=== PATIENT | female | born 1960 | race American Indian/Alaskan Native ===

== ENCOUNTER 2018-11-03 10:08 | Outpatient (CLI) | payer BC ==
--- NOTE | 2018-11-03 11:29 | Magnetic Resonance Report ---
MRI LEFT SHOULDER WITHOUT CONTRAST INDICATION: LEFT SHOULDER/ARM PAIN. COMPARISON: None available. TECHNIQUE: Multisequence, multiplanar images were obtained. FINDINGS: SUPRASPINATUS: There is a complete tear of the supraspinatus tendon with tendon or traction to the le marybeth of the mid humeral head about 3 cm from the greater tuberosity and mild atrophy of the supraspino us muscle belly. INFRASPINATUS: Low tendinosis without discrete tear. SUBSCAPULARIS: Moderate tendinosis without discrete tear. BICEPS TENDON, LONG HEAD: No significant abnormality. GLENOID LABRUM: No significant abnormality. ARTICULAR CARTILAGE: No significant abnormality. JOINT SPACE AND CAPSULE: No significant abnormality. ACROMIOCLAVICULAR JOINT: No significant abnormality. SUBACROMIAL/SUBDELTOID SPACE: No significant abnormality. BONES: No bone marrow edema. No fracture. No osseous lesion. SOFT TISSUES: No acute findings. ADDITIONAL FINDINGS: None. IMPRESSION: 1. Complete tear of the supraspinatus tendon with tendon retraction to the level of the mid humeral h ead and mild atrophy of the supraspinatus muscle belly. 2. [id number] infraspinatus and supraspinatus tendinosis without additional discrete rotator cu ff tear. Signer Name: August Chen MD Signed: 11/03/2018 11:25 AM Workstation Name: [id number]
== END 2018-11-03 10:09 | disposition home or self-care (01) ==
LOC: MRI 10:08
PROVIDERS: ATTEND Orthopaedic Surgery
DX: M75.122 Complete rotator cuff tear or rupture of left shoulder, not specified as traumatic (principal)

== ENCOUNTER 2019-03-15 08:19 | Day surgery (SDC) | payer BC ==
[~2019-03-15 08:19] MED LIST: ACETAMINOPHEN 500 MG TAB PO NR; GABAPENTIN 300 MG CAP PO NR; LACTATED RINGERS 1,000 ML IV SCH; MIDAZOLAM 2 MG/2 ML INJ IV NR; ceFAZolin/STERILE WATER 2 GM/20 ML SYRINGE IV NR; fentaNYL 100 MCG/2 ML INJ IV PRN
[2019-03-15] MEDS ORDERED: methylPREDNISolone ACETATE 40 MG/1 ML INJ ONE (09:11)
[2019-03-15] MEDS ORDERED: EPINEPHrine/PF (1:1,000) 1 MG/1 ML INJ ONE (09:12)
[2019-03-15] MEDS ORDERED: BUPIVACAINE-EPINEPHRINE/PF 0.25%-1:200,000 (30 ML) VIAL INFILTRATI ONE (09:12)
--- NOTE | 2019-03-15 09:26 | Anesthesia Consultation ---
Anesthesia Consult and Med Hx Date of service: 03/15/19 - Airway Anesthetic Teeth Evaluation: Poor ROM Head & Neck: Adequate Mental/Hyoid Distance: Adequate Mallampati Class: Class II Intubation Access Assessment: Good - Pulmonary Exam CTA: Yes - Cardiac Exam Cardiac Exam: RRR - Pre-Operative Health Status ASA Pre-Surgery Classification: ASA3 Proposed Anesthetic Plan: General - Pulmonary Hx Smoking: Yes (03/29 1 PPD X 30 YRS) Hx Asthma: Yes (DAILY INHALER) Hx Pneumonia: Yes (06/2018- RESOLVED) Hx Sleep Apnea: No (MARY PRE SCREEN HIGH RISK.) - Cardiovascular System Hx Hypertension: No - Hematic Hx Anemia: Yes (NOT RECENT) - Other Systems Hx Alcohol Use: Yes (1-2 DRINKS EVERY OTHER DAY) Hx Cancer: No - Additional Comments Anesthesia Medical History Comments: daily pack a day smoker , suspect COPD use inhaler daily , diet controlled DM
[2019-03-15] MEDS ORDERED: HYDROmorphone 1 MG/1 ML INJ IV PRN (09:27)
[2019-03-15] MEDS ORDERED: ONDANSETRON 4 MG/2 ML INJ IV PRN (09:27)
--- NOTE | 2019-03-15 09:27 | Anesthesia Day of Surgery ---
Anesthesia Day of Surgery - Day of Surgery Patient Examined: Yes Patient H&P Reviewed: Yes Patient is NPO: Yes
[2019-03-15] MEDS ORDERED: BUPIVACAINE-EPINEPHRINE/PF 0.5%-1:200,000 (30 ML) VIAL INFILTRATI ONE (09:32)
[2019-03-15] MEDS ORDERED: HYDROmorphone 1 MG/1 ML INJ ONE (11:28)
[2019-03-15] MEDS ORDERED: PROPOFOL 200 MG/20 ML VIAL IV ONE (11:28)
[2019-03-15] MEDS ORDERED: PHENYLEPHRINE/NS 1,000 MCG/10 ML SYRINGE (OR USE) IV ONE (12:12)
[2019-03-15] MEDS ORDERED: LIDOCAINE MPF (2%) 20 MG/1 ML VIAL 5 ML ONE (12:13)
[2019-03-15] MEDS ORDERED: SODIUM CHLORIDE P/F VIAL 10 ML 10 ML ONE (12:22)
[2019-03-15] MEDS ORDERED: LACTATED RINGERS 1,000 ML ONE (13:17)
[2019-03-15] MEDS ORDERED: SODIUM CHLORIDE 0.9% IRRIG SOLN 2000 ML IR ONE (13:51)
[2019-03-15] MEDS ORDERED: ONDANSETRON 4 MG/2 ML INJ ONE (13:56)
--- NOTE | 2019-03-15 14:00 | Procedure Note ---
Date of procedure: 03/15/19 Pre-op diagnosis: rotator cuff tear left shoulder Post-op diagnosis: same Procedure: Arthroscopy left shoulder with subacromial decompression and repair rotator cuff tendon using suture anchors Procedure The patient was brought to the OR after being given a scalene nerve block for postop pain management . She was placed in the OR table in supine position following induction and intubation by anesthesia patient was placed in the right lateral decubitus position the left upper extremity was prepped and draped in the usual sterile manner. A timeout procedure was done to identify the patient and the correct operative site. Routine arthroscopic portals were made following introduction of the arthroscope and instruments and insufflation of the subacromial space with normal saline solution patient was noted to have a full-thickness rotator cuff tear which extended from the supraspinatus anteriorly towards the infraspinatus posteriorly in addition she was also noted to have abundant synovial bursal thickening as well as significant impingement from the acromion and acromioclavicular joints. Using a tissue ablator the soft tissue was removed from both the bursal tissues as well as the periosteal tissues overlying the distal acromion and acromioclavicular joints A large bur was used to debride the bony impingement again this was done under arthroscopic visualization. The anatomic footprint was then seen and debrided using the ti ssue ablator the rotator cuff tendon was grasped using a tissue grasper and appeared to move quite mobile and to anterior cruciate ligament footprint.Next 2 suture anchor sutures were placed into these supraspinatus tendon anteriorly as well as the infraspinatus tendon posteriorly the suture anchors were secured into the greater tuberosity followed by tightening of the sutures and pulling the rotator cuff tendon firmly onto the anatomic footprint arthroscopic photographs were obtained showing good placement of the rotator cuff repair following this the wound was copiously irrigated via stab wounds were repaired with 2 postop dressings were applied the patient was extubated and was taken to postanesthesia recovery in stable condition. Patient will also receive a scalene nerve block for postop pain management Anesthesia: MAC, regional Surgeon: MALENA BEEBE [employer] Operator: ALOK QUINTEROS Estimated blood loss: minimal Pathology: none Condition: stable Disposition: PACU
[2019-03-15 16:20] VITALS: BP 146/75
--- NOTE | 2019-03-15 17:32 | Post Anesthesia Evaluation ---
- Post Anesthesia Evaluation Patient Participated: Yes Airway Patent: Yes Stable Respiratory Function: Yes Nausea/Vomiting: No Temp > 96.8F: Yes Pain Manageable: Yes Adequeate Hydration: Yes Anesthesia Complications: No Block Receding Appropriately: Not Applicable Patient on Ventilator: No
== END 2019-03-15 16:00 | disposition home or self-care (01) ==
LOC: OR 08:19
PROVIDERS: ATTEND Orthopaedic Surgery
DX: M75.102 Unspecified rotator cuff tear or rupture of left shoulder, not specified as traumatic (principal); J45.909 Unspecified asthma, uncomplicated; Z72.89 Other problems related to lifestyle; Z79.899 Other long term (current) drug therapy; Z98.890 Other specified postprocedural states; Z86.2 Personal history of diseases of the blood and blood-forming organs and certain disorders involving the immune mechanism
CPT/HCPCS: 29826; 29827; 64415; 82962; A4217; C1713; J0171; J0690; J1170; J2250; J2370; J2405; J2704; J3010; J7120; V2790; J1030

== ENCOUNTER 2019-06-22 11:37 | Emergency (ER) | payer BC ==
[2019-06-22 11:48] VITALS: BP 167/80
--- NOTE | 2019-06-22 11:49 | Emergency Department Report ---
Chief Complaint: Allergic Reaction Stated Complaint: ALLERGIES - HPI History of Present Illness: Mrs. Sung with hx of allergies and asthma who presents with nasal congestion wheezing. Desires steroid shot. No current shortness of breath. "I'm not sick. I just need to see a doctor. Patient appears well. Speaking full word sentences. MSE screening note: Focused history and physical exam performed. Due to findings the following was ordered: ED Disposition for MSE Clinical Impression: Asthma, Allergic rhinitis Disposition: TO HOME OR SELFCARE Is pt being admited?: No Does the pt Need Aspirin: No Condition: Stable Instructions: Asthma (ED) Prescriptions: Prednisone [predniSONE 10 mg (6-Day Pack, 21 Tabs)] 10 mg PO .TAPER #1 tab.ds.pk
== END 2019-06-22 12:18 | disposition home or self-care (01) ==
LOC: ED 11:37
DX: J45.909 Unspecified asthma, uncomplicated (principal); Z88.6 Allergy status to analgesic agent
CPT/HCPCS: 99282

== ENCOUNTER 2019-10-27 09:42 | Emergency (ER) | payer BC ==
[2019-10-27] MEDS ORDERED: IPRATROPIUM 0.02% NEBU 2.5 ML IH ONE (10:31)
[2019-10-27] MEDS ORDERED: dexAMETHasone 4 MG/ML VIAL IM ONE (10:31)
[2019-10-27] MEDS ORDERED: ALBUTEROL 2.5 MG/3 ML NEBU IH ONE (10:31)
--- NOTE | 2019-10-27 11:01 | Emergency Department Report ---
ED Asthma HPI - General Chief Complaint: Adult Asthma Stated Complaint: ASTHMA Time Seen by Provider: 10/27/19 10:17 Source: patient Mode of arrival: Ambulatory Limitations: No Limitations - History of Present Illness Initial Comments: pt is a 59 yo female who presents to the ED with c/o asthma exacerbation that began a week ago. she has associated wheezing, SOB, occasional dry cough. she states she had a subjective fever two days ago which self resolved without intervention. she denies any productive cough, CP, n/v/d. she denies any sick contacts or recent travel. she states she uses advair, albuterol inhaler, albuterol nebulizer, and singulair for her asthma. she states she has been using neb tx every 4-6 hours. no other pmhx. no allergies to meds. - Related Data Home Medications Medication Instructions Recorded Confirmed Last Taken Albuterol Sulfate [Proventil Hfa] 2 puff IH PRN PRN 03/09/19 03/15/19 03/15/19 06:00 Fluticasone/Salmeterol [Advair 1 puff IH BID 03/09/19 03/15/19 03/15/19 06:00 Diskus 250-50 mcg] Montelukast [Singulair] 10 mg PO QPM 03/09/19 03/15/19 03/14/19 22:00 Naproxen Sodium [Aleve] 220 mg PO TID 03/09/19 03/09/19 Unknown Previous Rx's Medication Instructions Recorded Last Taken Type oxyCODONE /ACETAMINOPHEN [Percocet 1 tab PO Q4HR #30 tab 03/15/19 Unknown Rx 5/325] Prednisone [predniSONE 10 mg 10 mg PO .TAPER #1 tab.ds.pk 06/22/19 Unknown Rx (6-Day Pack, 21 Tabs)] Azithromycin [Zithromax TAB] 250 mg PO QDAY 5 Days #6 tablet 10/27/19 Unknown Rx Prednisone [predniSONE 10 mg 10 mg PO .TAPER #1 tab.ds.pk 10/27/19 Unknown Rx (6-Day Pack, 21 Tabs)] Allergies Allergy/AdvReac Type Severity Reaction Status Date / Time ibuprofen [From Motrin] AdvReac ABD PAIN Verified 03/09/19 09:34 ED Review of Systems ROS: Stated complaint: ASTHMA Other details as noted in HPI Comment: All other systems reviewed and negative ED Past Medical Hx - Past Medical History Previous Medical History?: Yes Hx Hypertension: No Hx Diabetes: Yes (NO MEDS, DIET CONTROLLED) Hx Asthma: Yes (DAILY INHALER) Hx HIV: No - Surgical History Past Surgical History?: Yes Additional Surgical History: Rotator cuff surgery on left - Social History Smoking Status: Current Every Day Smoker Substance Use Type: Alcohol, Prescribed - Medications Home Medications: Home Medications Medication Instructions Recorded Confirmed Last Taken Type Albuterol Sulfate [Proventil Hfa] 2 puff IH PRN PRN 03/09/19 03/15/19 03/15/19 06:00 History Fluticasone/Salmeterol [Advair 1 puff IH BID 03/09/19 03/15/19 03/15/19 06:00 History Diskus 250-50 mcg] Montelukast [Singulair] 10 mg PO QPM 03/09/19 03/15/19 03/14/19 22:00 History Naproxen Sodium [Aleve] 220 mg PO TID 03/09/19 03/09/19 Unknown History oxyCODONE /ACETAMINOPHEN [Percocet 1 tab PO Q4HR #30 tab 03/15/19 Unknown Rx 5/325] Prednisone [predniSONE 10 mg 10 mg PO .TAPER #1 tab.ds.pk 06/22/19 Unknown Rx (6-Day Pack, 21 Tabs)] Azithromycin [Zithromax TAB] 250 mg PO QDAY 5 Days #6 tablet 10/27/19 Unknown Rx Prednisone [predniSONE 10 mg 10 mg PO .TAPER #1 tab.ds.pk 10/27/19 Unknown Rx (6-Day Pack, 21 Tabs)] ED Physical Exam - General Limitations: No Limitations General appearance: alert, in no apparent distress - Head Head exam: Present: atraumatic, normocephalic - Eye Eye exam: Present: normal appearance - ENT ENT exam: Present: mucous membranes moist - Respiratory Respiratory exam: Present: wheezes (expiratory bilaterally). Absent: respiratory distress, rales, rhonchi, stridor, chest wall tenderness, accessory muscle use, decreased breath sounds, prolonged expiratory - Cardiovascular Cardiovascular Exam: Present: regular rate, normal rhythm, normal heart sounds. Absent: systolic murmur, diastolic murmur, rubs, gallop - Neurological Exam Neurological exam: Present: alert, oriented X3 - Psychiatric Psychiatric exam: Present: normal affect, normal mood - Skin Skin exam: Present: warm, dry, intact ED Course Vital Signs 10/27/19 10/27/19 10/27/19 09:48 12:16 12:24 Temperature 97.5 F L 97.5 F L Pulse Rate 82 71 71 Respiratory 20 18 18 Rate Blood Pressure 149/69 153/84 O2 Sat by Pulse 98 96 96 Oximetry ED Medical Decision Making - Radiology Data Radiology results: report reviewed, image reviewed XR chest 2 view interpreted by: Honoroi Mckoy MD impression: mild bronchial wall thickening which can be seen in inflammatory and infectious etiologies such as asthma or bronchitis - Medical Decision Making pt is a 59 yo female who presents to the ED with c/o asthma exacerbation that began a week ago. she has associated wheezing, SOB, occasional dry cough. she states she had a subjective fever two days ago which self resolved without intervention. she denies any productive cough, CP, n/v/d. she denies any sick contacts or recent travel. she states she uses advair, albuterol inhaler, albuterol nebulizer, and singulair for her asthma. she states she has been using neb tx every 4-6 hours. no other pmhx. no allergies to meds. vitals are stable. on exam: expiratory wheezing bilaterally, no rhonchi, no rales, no respiratory distress, no stridor, no accessory muscle use. CXR: mild bronchial wall thickening which can be seen in inflammatory and infectious etiologies such as asthma or bronchitis. pt given neb tx and dexamethasone IM and symptoms completely improved, pt had no further wheezing, she had very good air movement. pt will be treated for acute bronchitis. pt given prescription for azithromycin and prednisone. pt states that she has plenty of her asthma medications at home and does not need refills. advised pt please take medication as prescribed. increase your fluid intake. follow up with your primary care doctor for reexamination. return to the emergency room for any new or worsening symptoms. - Differential Diagnosis PNA, URI, viral syndrome, acute bronchitis, asthma, reactive airway Critical care attestation.: If time is entered above; I have spent that time in minutes in the direct care of this critically ill patient, excluding procedure time. ED Disposition Clinical Impression: Asthma Qualifiers: Asthma severity: unspecified severity Asthma persistence: unspecified Asthma complication type: with acute exacerbation Qualified Code(s): J45.901 - Unspecified asthma with (acute) exacerbation Acute bronchitis Qualifiers: Bronchitis organism: unspecified organism Qualified Code(s): J20.9 - Acute bronchitis, unspecified Disposition: TO HOME OR SELFCARE Is pt being admited?: No Does the pt Need Aspirin: No Condition: Stable Instructions: Asthma (ED), Acute Bronchitis (ED) Additional Instructions: please take medication as prescribed. increase your fluid intake. follow up with your primary care doctor for reexamination. return to the emergency room for any new or worsening symptoms. Prescriptions: Prednisone [predniSONE 10 mg (6-Day Pack, 21 Tabs)] 10 mg PO .TAPER #1 tab.ds.pk Azithromycin [Zithromax TAB] 250 mg PO QDAY 5 Days #6 tablet Referrals: PRIMARY CARE, [Primary Care Provider] - 2-3 Days Time of Disposition: 11:57 Print Language: UGANDAN
[2019-10-27 12:23] VITALS: BP 153/84
--- NOTE | 2019-10-31 10:37 | XRay Report ---
XR chest routine 2V INDICATION / CLINICAL INFORMATION: wheezing, SOB, cough. COMPARISON: 08/07/2009 FINDINGS: SUPPORT DEVICES: None. HEART / MEDIASTINUM: No significant abnormality. LUNGS / PLEURA: Mild bronchial wall thickening. No consolidation. Costophrenic sulci are sharp. No pn eumothorax. ADDITIONAL FINDINGS: No significant additional findings. IMPRESSION: 1. Mild bronchial wall thickening which can be seen in inflammatory and infectious etiologies such as asthma or bronchitis. Signer Name: Honorio Mckoy MD Signed: 10/27/2019 11:41 AM Workstation Name: [id number]
== END 2019-10-27 12:25 | disposition home or self-care (01) ==
LOC: ED 09:42
DX: J45.909 Unspecified asthma, uncomplicated (principal); E11.9 Type 2 diabetes mellitus without complications; F17.200 Nicotine dependence, unspecified, uncomplicated; Z79.899 Other long term (current) drug therapy; Z88.8 Allergy status to other drugs, medicaments and biological substances
CPT/HCPCS: 71046; 94640; 96372; 99283; J1100